=== PATIENT | female | born 1965 | race Caucasian/White ===

== ENCOUNTER 2022-01-29 11:08 | Inpatient (IN) | payer MEDICAID ==
[~2022-01-29] VITALS: Ht 162.6 cm; Wt 83.8 kg
[~2022-01-29 11:08] MED LIST: ALBU18HF2 INH; FLUO20CA39 PO; FLUT1DIS20 INH; FOLI1CAP8 PO; GABA300C PO; HYDR-3686 PO; HYDR-3972 PO; INSU100V40 SQ; INSU100V9 SQ; IPRA3AMP9 NEB; LANTUS SQ; METO100T14 PO; OMEG-79 PO; SEVE800T8 PO; TIOT4MIS3 PO; TRAZ-251 PO; VENL150C4 PO; VENL75TA90 PO; ZOLP10TA PO
[2022-01-29] MEDS ORDERED: LORazepam 2 mg/ml vial IV ONE (11:15)
[2022-01-29] MEDS ORDERED: metoclopramide 5 mg/ml inj IV ONE (11:25)
[2022-01-29 11:39] LABS: ABG BASE EXCESS -5.6 mmol/L (-2.0-2.0); ABG HCO3 21.9 mmol/L (22.0-26.0); ABG OXYGEN SATURATION 96.7 % (94-97); ABG PO2 (T) 92.7 mmHg (75.0-100.0); ALLEN'S TEST POSITIVE; FMetHb 0.2 % (0.0-1.5); FO2Hb 94.6 % (94-97); PATIENT TEMPERATURE 35.2; RESPIRATORY RATE 10 b/min; TOTAL HEMOGLOBIN 13.4 G/dl (12.0-16.0)
[2022-01-29 11:42] LABS: ALANINE AMINOTRANSFERASE 30 U/L (12-78); ALBUMIN 3.5 G/DL (3.4-5.0); ALBUMIN/GLOBULIN RATIO 0.7 (1.1-1.5); ALKALINE PHOSPHATASE 129 IU/L (46-116); ANION GAP 10 (8-16); ASPARTATE AMINO TRANSFERASE 27 U/L (10-37); BILIRUBIN,TOTAL 0.4 MG/DL (0.1-1.0); BLOOD UREA NITROGEN 40 MG/DL (7-18); BUN/CREATININE RATIO 6.1 (6.6-38.0); CALCIUM 8.8 MG/DL (8.5-10.1); CHLORIDE 91 MMOL/L (99-107); CREATININE 6.54 MG/DL (0.40-0.90); GLUCOSE 379 MG/DL (70-104); POTASSIUM 5.5 MMOL/L (3.5-5.1); SODIUM 129 MMOL/L (135-145); TOTAL CARBON DIOXIDE 27.7 MMOL/L (24-32); TOTAL PROTEIN 8.6 G/DL (6.4-8.2); eGFR 7 ML/MIN
[2022-01-29 11:43] LABS: BASOPHILS # (AUTO) 0.1 X10'3 (0-0.2); BASOPHILS % (AUTO) 0.9 % (0-1); EOSINOPHILS # (AUTO) 0.5 X10'3 (0-0.9); EOSINOPHILS % (AUTO) 3.4 % (0-6); HEMATOCRIT 39.8 % (35.0-45.0); HEMOGLOBIN 12.9 g/dl (12.0-16.0); LYMPHOCYTES # (AUTO) 3.6 X10'3 (1.1-4.8); LYMPHOCYTES % (AUTO) 22.6 % (21-51); MEAN CORPUSCULAR HGB CONC 32.4 g/dL (33.0-36.5); MEAN CORPUSCULAR VOLUME 98.7 FL (78-98); MEAN PLATELET VOLUME 7.2 FL (7.4-10.4); MONOCYTES # (AUTO) 0.8 X10'3 (0-0.9); MONOCYTES % (AUTO) 5.3 % (2-12); NEUTROPHILS # (AUTO) 10.7 X10'3 (1.8-7.7); NEUTROPHILS % (AUTO) 67.8 % (42-75); PLATELET COUNT 394 X10'3 (140-440); RED BLOOD COUNT 4.03 X10'6 (4.20-5.60); RED CELL DISTRIBUTION WIDTH 19.4 % (11.5-14.5); WHITE BLOOD COUNT 15.9 X10'3 (4.5-11.0)
[2022-01-29] MEDS ORDERED: nitroGLYCERIN 1gm ointment UD TP ONE (11:50)
[2022-01-29] MEDS ORDERED: furosemide 10 MG/1 ML 10ml inj IV ONE (11:50)
[2022-01-29 12:15] LABS: PLATELET ESTIMATE NORMAL
[2022-01-29 12:16] LABS: POLYCHROMASIA FEW; STOMATOCYTES 2+
[2022-01-29] MEDS ORDERED: magnesium 2GM in 50ml NS 50 ML IV PRN (12:45)
[2022-01-29] MEDS ORDERED: magnesium hydroxide 30ml (MOM) UD suspension PO PRN (12:45)
[2022-01-29] MEDS ORDERED: potassium CL 10mEq/100ml bag 100 ML IV PRN (12:45)
[2022-01-29] MEDS ORDERED: magnesium Cl slow-release 64mg tablet PO PRN (12:45)
[2022-01-29] MEDS ORDERED: heparin 1,000unit/ml 10ml vial 10 ML IV ONE (12:45)
[2022-01-29] MEDS ORDERED: acetaminophen 650mg rectal suppository RC PRN (12:45)
[2022-01-29] MEDS ORDERED: POTASSIUM BICARB 20meq eff tab 20 MEQ TABLET.EFF PO PRN ×2 (12:45)
[2022-01-29] MEDS ORDERED: morphine 2 MG/ML inj. syringe IV PRN ×2 (12:45)
[2022-01-29] MEDS ORDERED: HYDROcodone/acetaminophen 5mg/325mg tablet PO PRN (12:45)
[2022-01-29] MEDS ORDERED: albumin (human) 25% 100ml IV 100 ML IV PRN (12:45)
[2022-01-29] MEDS ORDERED: magnesium 4gm in 100ml NS 100 ML IV PRN (12:45)
[2022-01-29] MEDS ORDERED: bisacodyl 10mg suppository rectal RC PRN (12:45)
[2022-01-29] MEDS ORDERED: mag hydrox/Alum hydrox/simeth 30ml oral suspension PO PRN (12:45)
[2022-01-29] MEDS ORDERED: heparin 1,000 units/ml 10ml inj IV ONE (12:45)
[2022-01-29] MEDS ORDERED: acetaminophen 325mg tablet PO PRN ×2 (12:45)
[2022-01-29] MEDS ORDERED: diphenhydrAMINE 25mg capsule PO PRN (12:45)
[2022-01-29] MEDS ORDERED: ondansetron/PF 4mg/2ml inj IV PRN (12:45)
[2022-01-29] MEDS ORDERED: heparin 1,000 units/ml 10ml inj HE ONE ×2 (12:50)
[2022-01-29 13:35] LABS: HEMOGLOBIN A1C 7.2 % (4.5-6.2)
[2022-01-29] MEDS: ipratropium/albuterol 3ml nebule NEB SCH ×3 (16:13→23:17)
[2022-01-29] MEDS ORDERED: INSU100V9 SQ ×2 (16:39)
[2022-01-29] MEDS ORDERED: METO100T14 PO (16:39)
[2022-01-29] MEDS ORDERED: IPRA3AMP31 NEB (16:39)
[2022-01-29] MEDS ORDERED: HYDR-3686 PO (16:39)
[2022-01-29] MEDS ORDERED: TRAZ-251 PO (16:39)
[2022-01-29] MEDS ORDERED: TRIA15CR61 TOP (16:39)
[2022-01-29] MEDS ORDERED: PRED5DRO3 EACHEYE (16:39)
[2022-01-29] MEDS ORDERED: VENL75CA61 PO (16:39)
[2022-01-29] MEDS ORDERED: HYDR-3972 PO (16:39)
[2022-01-29] MEDS ORDERED: FURO40TA4 PO (16:39)
[2022-01-29] MEDS ORDERED: SODI10PO PO (16:39)
[2022-01-29] MEDS ORDERED: ZOLP10TA PO (16:39)
[2022-01-29] MEDS ORDERED: TIOT4MIS3 (16:39)
[2022-01-29] MEDS ORDERED: FLUO-10 PO (16:39)
[2022-01-29] MEDS ORDERED: INSU100V40 SQ (16:39)
[2022-01-29] MEDS ORDERED: GABA300C PO ×2 (16:39)
[2022-01-29] MEDS ORDERED: DEXTROSE 15 GM of carb/4 tabs (each vial/BOTTLE has 4 tablets) PO PRN ×2 (17:15)
[2022-01-29] MEDS ORDERED: methylPREDNISolone sod succ 125mg/2ml vial IV ONE (17:15)
[2022-01-29] MEDS ORDERED: azithromycin 250mg tablet PO ONE (17:15)
[2022-01-29] MEDS ORDERED: dextrose 50%-water 50ml dispensing syringe IV PRN ×2 (17:15)
[2022-01-29] MEDS ORDERED: MESSAGE TO PHARMACY PO ONE (17:15)
[2022-01-29] MEDS ORDERED: glucagon, human recombinant 1mg kit SUBCUT PRN (17:15)
--- NOTE | 2022-01-29 17:20 | NUR ---
Report given to ALBINA Blanco, pt to go to room 3014 B
[2022-01-29] MEDS ORDERED: cefTRIAXone 1g/NS 100ml IVPB 100 ML IV SCH (17:30)
[2022-01-29 19:00] VITALS: BP 145/74
[2022-01-29] MEDS ORDERED: LIDOcaine 1% (10mg/ml) 2ml vial SQ ONE (19:40)
[2022-01-29 20:00] VITALS: BP 129/67
[2022-01-29] MEDS: heparin, porcine 5000 units/ml vial SQ SCH (20:00)
[2022-01-29] MEDS: K and/or MAG REPLACEMENT MC SCH (20:00)
[2022-01-29] MEDS: insulin glargine (Lantus) pen - multi-dose SQ SCH (21:00)
[2022-01-29 22:00] VITALS: BP 155/72
[2022-01-29] MEDS ORDERED: hydrOXYzine 25 MG tablet PO PRN (22:30)
[2022-01-29] MEDS: HYDROcodone/acetaminophen 10/325mg tab PO PRN (22:40)
[2022-01-29] MEDS: docusate sod 100mg capsule PO SCH (22:41)
[2022-01-29] MEDS: furosemide 10 MG/1 ML 10ml inj IV SCH (22:43)
[2022-01-30] MEDS: methylPREDNISolone sod succ 125mg/2ml vial IV SCH ×3 (00:25→16:18)
[2022-01-30] MEDS ORDERED: cefTRIAXone 1g/NS 100ml IVPB 100 ML IV SCH (00:35)
[2022-01-30] MEDS: traZODone 50mg tablet PO SCH ×2 (01:23→21:13)
[2022-01-30] MEDS: HYDROcodone/acetaminophen 10/325mg tab PO PRN ×3 (01:41→13:55)
[2022-01-30 02:00] VITALS: BP 142/67
[2022-01-30] MEDS: ipratropium/albuterol 3ml nebule NEB SCH ×6 (02:34→23:07)
[2022-01-30 06:00] VITALS: BP 114/59
--- NOTE | 2022-01-30 06:31 | NUR ---
Problems reprioritized. Patient report given, ALBINA Hatch, questions answered & plan of care reviewed with .
[2022-01-30] MEDS: FLUoxetine 20mg capsule PO SCH (07:26)
[2022-01-30] MEDS: docusate sod 100mg capsule PO SCH ×2 (07:27→21:14)
[2022-01-30] MEDS: metoprolol tartrate 50mg tablet PO SCH (07:29)
[2022-01-30 07:30] LABS: BASOPHILS % (AUTO) 0.2 % (0-1); EOSINOPHILS % (AUTO) 0.1 % (0-6); HEMATOCRIT 33.3 % (35.0-45.0); HEMOGLOBIN 11.2 g/dl (12.0-16.0); LYMPHOCYTES # (AUTO) 0.9 X10'3 (1.1-4.8); LYMPHOCYTES % (AUTO) 11.3 % (21-51); MEAN CORPUSCULAR HEMOGLOBIN 33.1 PG (27.0-31.0); MEAN CORPUSCULAR HGB CONC 33.5 g/dL (33.0-36.5); MEAN CORPUSCULAR VOLUME 98.7 FL (78-98); MEAN PLATELET VOLUME 7.4 FL (7.4-10.4); MONOCYTES # (AUTO) 0.1 X10'3 (0-0.9); MONOCYTES % (AUTO) 0.7 % (2-12); NEUTROPHILS # (AUTO) 6.7 X10'3 (1.8-7.7); NEUTROPHILS % (AUTO) 87.7 % (42-75); PLATELET COUNT 255 X10'3 (140-440); RED BLOOD COUNT 3.38 X10'6 (4.20-5.60); RED CELL DISTRIBUTION WIDTH 19.1 % (11.5-14.5); WHITE BLOOD COUNT 7.7 X10'3 (4.5-11.0)
[2022-01-30] MEDS: azithromycin 250mg tablet PO SCH (07:30)
[2022-01-30] MEDS: venlafaxine XR 75mg capsule (Q24H) PO SCH (07:31)
[2022-01-30] MEDS: heparin, porcine 5000 units/ml vial SQ SCH ×2 (07:32→21:13)
[2022-01-30] MEDS: furosemide 10 MG/1 ML 10ml inj IV SCH ×2 (07:33→21:13)
[2022-01-30] MEDS: triamcinolone acetonide 0.5% cream 15gm TP SCH ×2 (07:36→21:14)
[2022-01-30] MEDS: prednisoLONE acetate 1% ophth susp 5ml EACHEYE SCH ×2 (07:36→21:12)
[2022-01-30] MEDS ORDERED: (Tiotropium Br/Olodaterol HCl (Stiolto Respimat Inhal Spray) 2 PUFFS) IH SCH (08:00)
[2022-01-30] MEDS ORDERED: SODIUM ZIRCONIUM CYCLOSILICATE 10 GM POWD.PACK PO SCH (08:00)
[2022-01-30] MEDS ORDERED: gabapentin 300mg capsule PO SCH ×2 (08:00→21:00)
[2022-01-30] MEDS: K and/or MAG REPLACEMENT MC SCH ×2 (08:00→20:00)
[2022-01-30] MEDS: insulin Lispro (HumaLOG) vial - multi-dose SQ SCH ×5 (08:11→22:07)
[2022-01-30 08:22] LABS: ALANINE AMINOTRANSFERASE 24 U/L (12-78); ALBUMIN 2.9 G/DL (3.4-5.0); ALBUMIN/GLOBULIN RATIO 0.7 (1.1-1.5); ALKALINE PHOSPHATASE 92 IU/L (46-116); ANION GAP 16 (8-16); ASPARTATE AMINO TRANSFERASE 18 U/L (10-37); BILIRUBIN,TOTAL 0.4 MG/DL (0.1-1.0); BLOOD UREA NITROGEN 59 MG/DL (7-18); BUN/CREATININE RATIO 7.6 (6.6-38.0); CALCIUM 8.4 MG/DL (8.5-10.1); CHLORIDE 92 MMOL/L (99-107); CHOL/HDL RATIO 5.2 (0.00-4.99); CHOLESTEROL 239 MG/DL (0-200); CREATININE 7.81 MG/DL (0.40-0.90); GLUCOSE 295 MG/DL (70-104); HDL CHOLESTEROL 46 MG/DL (35-60); LDL CHOLESTEROL 136 MG/DL (50-100); MAGNESIUM 2.7 MG/DL (1.5-2.4); PHOSPHORUS 7.4 MG/DL (2.3-4.5); POTASSIUM 5.3 MMOL/L (3.5-5.1); SODIUM 129 MMOL/L (135-145); TOTAL CARBON DIOXIDE 20.6 MMOL/L (24-32); TOTAL PROTEIN 7.3 G/DL (6.4-8.2); TRIGLYCERIDES 219 MG/DL (20-135); eGFR 5 ML/MIN
[2022-01-30] MEDS ORDERED: LIDOcaine 1% (10mg/ml) 2ml vial SQ ONE (10:20)
[2022-01-30] MEDS ORDERED: heparin 1,000 units/ml 10ml inj IV ONE (10:20)
--- NOTE | 2022-01-30 10:23 | NUR ---
reviewed [facility] nursing teacher physical assessment charting, witnessed medication administration
--- NOTE | 2022-01-30 10:51 | NUR ---
Diabetes consult: Noted pt w/ hx of DM A1c 7.2 Written DM ed w/ RD contact info placed in pt chart Addendum: 01/30/22 at [address] Amended: Links added.
[2022-01-30 11:00] VITALS: BP 131/53
[2022-01-30] MEDS: sevelamer carbonate 800mg tablet PO SCH ×2 (13:08→17:30)
[2022-01-30 15:00] VITALS: BP 118/62
[2022-01-30] MEDS: atorvastatin 20mg tablet PO SCH (16:18)
--- NOTE | 2022-01-30 17:32 | NUR ---
reviewed physical assessment charting from [facility] nursing resident
[2022-01-30 18:00] VITALS: BP 129/59
[2022-01-30] MEDS ORDERED: zolpidem 5mg tablet PO SCH (21:00)
[2022-01-30 22:00] VITALS: BP 144/66
[2022-01-30] MEDS: insulin glargine (Lantus) pen - multi-dose SQ SCH (22:06)
--- NOTE | 2022-01-30 22:44 | NUR ---
critical BS. Provider notified about Pt Sarina Romano rm [id number]. HS BS 468. 9U humalog given. RN Will [id number]. ty
[2022-01-31] MEDS: methylPREDNISolone sod succ 125mg/2ml vial IV SCH ×2 (01:10→07:31)
[2022-01-31 02:00] VITALS: BP 139/70
[2022-01-31] MEDS: HYDROcodone/acetaminophen 10/325mg tab PO PRN ×2 (02:19→10:09)
[2022-01-31] MEDS: ipratropium/albuterol 3ml nebule NEB SCH ×4 (02:48→14:41)
[2022-01-31 06:00] VITALS: BP 170/87
[2022-01-31 07:23] LABS: ALANINE AMINOTRANSFERASE 24 U/L (12-78); ALBUMIN 3.1 G/DL (3.4-5.0); ALBUMIN/GLOBULIN RATIO 0.7 (1.1-1.5); ALKALINE PHOSPHATASE 107 IU/L (46-116); ANION GAP 9 (8-16); ASPARTATE AMINO TRANSFERASE 15 U/L (10-37); BILIRUBIN,TOTAL 0.3 MG/DL (0.1-1.0); BLOOD UREA NITROGEN 59 MG/DL (7-18); BUN/CREATININE RATIO 11.5 (6.6-38.0); CALCIUM 8.4 MG/DL (8.5-10.1); CHLORIDE 95 MMOL/L (99-107); CREATININE 5.14 MG/DL (0.40-0.90); GLUCOSE 265 MG/DL (70-104); MAGNESIUM 2.4 MG/DL (1.5-2.4); PHOSPHORUS 5.4 MG/DL (2.3-4.5); SODIUM 129 MMOL/L (135-145); TOTAL CARBON DIOXIDE 25.4 MMOL/L (24-32); TOTAL PROTEIN 7.4 G/DL (6.4-8.2); eGFR 9 ML/MIN
[2022-01-31 07:26] VITALS: BP_SYST 170
[2022-01-31] MEDS: metoprolol tartrate 50mg tablet PO SCH (07:26)
[2022-01-31] MEDS: azithromycin 250mg tablet PO SCH (07:26)
[2022-01-31] MEDS: FLUoxetine 20mg capsule PO SCH (07:27)
[2022-01-31] MEDS: venlafaxine XR 75mg capsule (Q24H) PO SCH (07:28)
[2022-01-31] MEDS: docusate sod 100mg capsule PO SCH (07:28)
[2022-01-31] MEDS: atorvastatin 20mg tablet PO SCH (07:29)
[2022-01-31] MEDS: sevelamer carbonate 800mg tablet PO SCH ×2 (07:30→13:05)
[2022-01-31 07:31] LABS: POTASSIUM 7.1 MMOL/L (3.5-5.1)
[2022-01-31] MEDS: furosemide 10 MG/1 ML 10ml inj IV SCH (07:31)
[2022-01-31] MEDS: heparin, porcine 5000 units/ml vial SQ SCH (07:32)
--- NOTE | 2022-01-31 07:34 | NUR ---
Critical K of 7.1 reported to RN at this time. Lab to be redrawn.
[2022-01-31] MEDS: prednisoLONE acetate 1% ophth susp 5ml EACHEYE SCH (07:37)
[2022-01-31] MEDS: triamcinolone acetonide 0.5% cream 15gm TP SCH (07:39)
[2022-01-31] MEDS ORDERED: gabapentin 100mg capsule PO SCH (08:00)
[2022-01-31] MEDS: K and/or MAG REPLACEMENT MC SCH (08:00)
[2022-01-31 08:12] LABS: BASOPHILS % (AUTO) 0.2 % (0-1); EOSINOPHILS % (AUTO) 0 % (0-6); HEMATOCRIT 34.1 % (35.0-45.0); HEMOGLOBIN 10.9 g/dl (12.0-16.0); LYMPHOCYTES % (AUTO) 6.8 % (21-51); MEAN CORPUSCULAR HEMOGLOBIN 31.6 PG (27.0-31.0); MEAN CORPUSCULAR VOLUME 98.6 FL (78-98); MEAN PLATELET VOLUME 7.2 FL (7.4-10.4); MONOCYTES # (AUTO) 0.2 X10'3 (0-0.9); MONOCYTES % (AUTO) 1.5 % (2-12); NEUTROPHILS # (AUTO) 13.3 X10'3 (1.8-7.7); NEUTROPHILS % (AUTO) 91.5 % (42-75); PLATELET COUNT 270 X10'3 (140-440); RED BLOOD COUNT 3.45 X10'6 (4.20-5.60); RED CELL DISTRIBUTION WIDTH 19.7 % (11.5-14.5); WHITE BLOOD COUNT 14.6 X10'3 (4.5-11.0)
[2022-01-31] MEDS: insulin Lispro (HumaLOG) vial - multi-dose SQ SCH (08:58)
[2022-01-31] MEDS ORDERED: LEVO500T90 PO (09:48)
--- NOTE | 2022-01-31 11:21 | NUR ---
Notified MD Mustafa of elevated blood sugars at this time.
== END 2022-01-31 13:30 | disposition home or self-care (01) | DRG 133 ==
LOC: ER 11:09 → ED HOLD 12:53 → PCU 3S 17:35
PROVIDERS: ADMIT Family Medicine; ATTEND Family Medicine
PROC: 5A1D70Z Performance of Urinary Filtration, Intermittent, Less than 6 Hours Per Day (ICD-10-PCS; principal; 2022-01-29)
PROC: 5A09357 Assistance with Respiratory Ventilation, Less than 24 Consecutive Hours, Continuous Positive Airway Pressure (ICD-10-PCS; 2022-01-29)
PROC: 5A1D70Z Performance of Urinary Filtration, Intermittent, Less than 6 Hours Per Day (ICD-10-PCS; 2022-01-30)
DX: J96.21 Acute and chronic respiratory failure with hypoxia (principal); I13.2 Hypertensive heart and chronic kidney disease with heart failure and with stage 5 chronic kidney disease, or end stage renal disease; I27.20 Pulmonary hypertension, unspecified; J18.9 Pneumonia, unspecified organism; N18.6 End stage renal disease; E87.1 Hypo-osmolality and hyponatremia; I50.813 Acute on chronic right heart failure; E11.22 Type 2 diabetes mellitus with diabetic chronic kidney disease; J44.0 Chronic obstructive pulmonary disease with (acute) lower respiratory infection; E11.42 Type 2 diabetes mellitus with diabetic polyneuropathy; Z20.822 Contact with and (suspected) exposure to COVID-19; E78.00 Pure hypercholesterolemia, unspecified; E87.5 Hyperkalemia; F17.210 Nicotine dependence, cigarettes, uncomplicated; F32.A Depression, unspecified; F41.9 Anxiety disorder, unspecified; G89.4 Chronic pain syndrome; J44.1 Chronic obstructive pulmonary disease with (acute) exacerbation; J96.22 Acute and chronic respiratory failure with hypercapnia; Z79.4 Long term (current) use of insulin; Z79.899 Other long term (current) drug therapy; Z91.19 Patient's noncompliance with other medical treatment and regimen; Z99.2 Dependence on renal dialysis; Z71.6 Tobacco abuse counseling
CPT/HCPCS: 36415; 36600; 71045; 80053; 80061; 82803; 82948; 83036; 83605; 83735; 83880; 84100; 84132; 84145; 84484; 85008; 85018; 85025; 85610; 87040; 87081; 87635; 90935; 92508; 92616; 93005; 93306; 94640; 94660; 94760; 99291; G0257; G0378; J0696; J1644; J1815; J1940; J2765; J2930; J3490; Q0177

== ENCOUNTER 2022-05-24 12:00 | Inpatient (IN) | payer MEDICAID ==
[~2022-05-24] VITALS: Ht 167.6 cm; Wt 84.0 kg
[~2022-05-24 12:00] MED LIST changes: +FLUO-10 PO; +FURO40TA4 PO; +IPRA3AMP31 NEB; +PRED5DRO3 EACHEYE; +SODI10PO PO; +TIOT4MIS3; +TRIA15CR61 TOP; +VENL75CA61 PO
[2022-05-24] MEDS ORDERED: normal saline 1000ml 1,000 ML IV PRN (12:20)
[2022-05-24 12:35] VITALS: BP 141/66
[2022-05-24 13:00] LABS: BASOPHILS # (AUTO) 0.1 X10'3 (0-0.2); BASOPHILS % (AUTO) 0.6 % (0-1); EOSINOPHILS # (AUTO) 0.2 X10'3 (0-0.9); EOSINOPHILS % (AUTO) 2.3 % (0-6); HEMATOCRIT 32.6 % (35.0-45.0); LYMPHOCYTES # (AUTO) 1.8 X10'3 (1.1-4.8); LYMPHOCYTES % (AUTO) 16.4 % (21-51); MEAN CORPUSCULAR HEMOGLOBIN 32.9 PG (27.0-31.0); MEAN CORPUSCULAR HGB CONC 33.8 g/dL (33.0-36.5); MEAN CORPUSCULAR VOLUME 97.2 FL (78-98); MEAN PLATELET VOLUME 7.4 FL (7.4-10.4); MONOCYTES # (AUTO) 0.8 X10'3 (0-0.9); NEUTROPHILS # (AUTO) 7.9 X10'3 (1.8-7.7); NEUTROPHILS % (AUTO) 73.7 % (42-75); PLATELET COUNT 207 X10'3 (140-440); RED BLOOD COUNT 3.35 X10'6 (4.20-5.60); RED CELL DISTRIBUTION WIDTH 16.7 % (11.5-14.5); WHITE BLOOD COUNT 10.8 X10'3 (4.5-11.0)
[2022-05-24] MEDS ORDERED: AMLO-708 PO (13:16)
[2022-05-24] MEDS ORDERED: [UNRECOGNIZED DRUG - OTHER] (13:20)
[2022-05-24 13:38] LABS: ALBUMIN 3.1 G/DL (3.4-5.0); ANION GAP 21 (8-16); BLOOD UREA NITROGEN 76 MG/DL (7-18); BUN/CREATININE RATIO 4.8 (6.6-38.0); CALCIUM 7.9 MG/DL (8.5-10.1); CHLORIDE 96 MMOL/L (99-107); CREATININE 15.85 MG/DL (0.40-0.90); GLUCOSE 99 MG/DL (70-104); SODIUM 135 MMOL/L (135-145); TOTAL CARBON DIOXIDE 17.6 MMOL/L (24-32); eGFR 2 ML/MIN
--- NOTE | 2022-05-24 13:45 | NUR ---
IR notified of patient's critical potassium 7.1. Dr. German aware.
[2022-05-24 13:46] LABS: POTASSIUM 7.1 MMOL/L (3.5-5.1)
--- NOTE | 2022-05-24 14:30 | NUR ---
Dr. Pulido in to see patient for admission
[2022-05-24] MEDS ORDERED: heparin 1,000unit/ml 10ml vial 10 ML ONE (14:47)
[2022-05-24] MEDS ORDERED: LIDOcaine 1% W/epiNEPHrine 1:100,000 20ml vial ONE (14:47)
[2022-05-24] MEDS ORDERED: midazolam 1 mg/ML 2ml injection ONE (14:48)
[2022-05-24] MEDS ORDERED: fentaNYL/PF 50MCG/1 ML 2ML syringe ONE (14:48)
[2022-05-24] MEDS ORDERED: POTASSIUM BICARB 20meq eff tab 20 MEQ TABLET.EFF PO PRN ×2 (15:30)
[2022-05-24] MEDS ORDERED: potassium CL 10mEq/100ml bag 100 ML IV PRN (15:30)
[2022-05-24] MEDS ORDERED: HYDROcodone/acetaminophen 10/325mg tab PO PRN (15:30)
[2022-05-24] MEDS ORDERED: HYDROmorphone/PF 0.2 MG/ML SYRINGE IV PRN (15:30)
[2022-05-24] MEDS ORDERED: HYDROcodone/acetaminophen 5mg/325mg tablet PO PRN (15:30)
[2022-05-24] MEDS ORDERED: HYDROmorphone inj. 0.5 MG/0.5 ML DISP.SYRIN IV PRN (15:30)
[2022-05-24] MEDS ORDERED: magnesium 4gm in 100ml NS 100 ML IV PRN (15:30)
[2022-05-24] MEDS ORDERED: ondansetron/PF 4mg/2ml inj IV PRN (15:30)
[2022-05-24] MEDS ORDERED: magnesium 2GM in 50ml NS 50 ML IV PRN (15:30)
[2022-05-24] MEDS ORDERED: acetaminophen 325mg tablet PO PRN ×2 (15:30)
[2022-05-24] MEDS ORDERED: mag hydrox/Alum hydrox/simeth 30ml oral suspension PO PRN (15:30)
[2022-05-24] MEDS ORDERED: magnesium Cl slow-release 64mg tablet PO PRN (15:30)
[2022-05-24] MEDS ORDERED: glucagon, human recombinant 1mg kit SUBCUT PRN (15:35)
[2022-05-24] MEDS ORDERED: normal saline 1000ml 250 ML IV PRN (15:35)
[2022-05-24] MEDS ORDERED: heparin 1,000 units/ml 10ml inj HE ONE ×2 (15:35)
[2022-05-24] MEDS ORDERED: dextrose 50%-water 50ml dispensing syringe IV PRN ×2 (15:35)
[2022-05-24] MEDS ORDERED: insulin Lispro (HumaLOG) vial - multi-dose SQ SCH (15:35)
[2022-05-24] MEDS ORDERED: heparin 1,000unit/ml 10ml vial 10 ML IV ONE (15:35)
[2022-05-24] MEDS ORDERED: DEXTROSE 15 GM of carb/4 tabs (each vial/BOTTLE has 4 tablets) PO PRN ×2 (15:35)
[2022-05-24] MEDS ORDERED: MESSAGE TO PHARMACY PO ONE (15:35)
[2022-05-24] MEDS ORDERED: EPOETIN ALFA-EPBX 20,000 UNIT/ML 1 ML MDV IV ONE (15:35)
[2022-05-24 15:50] VITALS: BP 154/79
[2022-05-24 16:27] LABS: PHOSPHORUS 16.4 MG/DL (2.3-4.5)
--- NOTE | 2022-05-24 17:05 | NUR ---
Patient taken up to PCU room 3019. All belongings with patient on transfer. Payton MONTEMAYOR at bedside.
[2022-05-24 18:00] VITALS: BP 148/62
[2022-05-24] MEDS: K and/or MAG REPLACEMENT MC SCH (20:00)
[2022-05-24] MEDS ORDERED: insulin glargine (Lantus) pen - multi-dose SQ SCH (21:00)
[2022-05-24 22:00] VITALS: BP 138/71
[2022-05-25 02:00] VITALS: BP 125/69
[2022-05-25 07:01] LABS: ALANINE AMINOTRANSFERASE 14 U/L (12-78); ALBUMIN/GLOBULIN RATIO 0.7 (1.1-1.5); ALKALINE PHOSPHATASE 94 IU/L (46-116); ANION GAP 15 (8-16); ASPARTATE AMINO TRANSFERASE 19 U/L (10-37); BILIRUBIN,TOTAL 0.3 MG/DL (0.1-1.0); BLOOD UREA NITROGEN 35 MG/DL (7-18); BUN/CREATININE RATIO 3.8 (6.6-38.0); CALCIUM 8.2 MG/DL (8.5-10.1); CHLORIDE 98 MMOL/L (99-107); GLUCOSE 223 MG/DL (70-104); MAGNESIUM 2.5 MG/DL (1.5-2.4); PHOSPHORUS 8.7 MG/DL (2.3-4.5); POTASSIUM 4.5 MMOL/L (3.5-5.1); SODIUM 139 MMOL/L (135-145); TOTAL CARBON DIOXIDE 26.3 MMOL/L (24-32); TOTAL PROTEIN 7.3 G/DL (6.4-8.2); eGFR 4 ML/MIN
[2022-05-25] MEDS: K and/or MAG REPLACEMENT MC SCH (08:00)
[2022-05-25] MEDS ORDERED: LIDOcaine 1%/PF 5ML 10 MG/ML VIAL ONE (14:37)
[2022-05-25] MEDS ORDERED: heparin 1,000unit/ml 10ml vial 10 ML ONE (14:38)
[2022-05-25] MEDS ORDERED: fentaNYL/PF 50MCG/1 ML 2ML syringe ONE (14:38)
[2022-05-25] MEDS ORDERED: midazolam 1 mg/ML 2ml injection ONE (14:38)
--- NOTE | 2022-05-25 18:01 | NUR ---
Patient given discharge papers and instructions discussed with patient. Questions answered. IVL removed.
[2022-05-26 13:28] LABS: HBSAG SCREEN Negative (Negative)
== END 2022-05-25 17:18 | disposition home or self-care (01) | DRG 206 ==
LOC: SSTAY O 12:00 → PCU 3S 15:31
PROVIDERS: ADMIT Family Medicine; ATTEND Family Medicine
PROC: 02HV33Z Insertion of Infusion Device into Superior Vena Cava, Percutaneous Approach (ICD-10-PCS; principal; 2022-05-24)
PROC: B548ZZA Ultrasonography of Superior Vena Cava, Guidance (ICD-10-PCS; 2022-05-24)
PROC: B5181ZA Fluoroscopy of Superior Vena Cava using Low Osmolar Contrast, Guidance (ICD-10-PCS; 2022-05-24)
PROC: 5A1D70Z Performance of Urinary Filtration, Intermittent, Less than 6 Hours Per Day (ICD-10-PCS; 2022-05-24)
DX: T82.868A Thrombosis due to vascular prosthetic devices, implants and grafts, initial encounter (principal); I12.0 Hypertensive chronic kidney disease with stage 5 chronic kidney disease or end stage renal disease; E11.22 Type 2 diabetes mellitus with diabetic chronic kidney disease; E78.5 Hyperlipidemia, unspecified; F41.9 Anxiety disorder, unspecified; Z20.822 Contact with and (suspected) exposure to COVID-19; E11.42 Type 2 diabetes mellitus with diabetic polyneuropathy; Y83.8 Other surgical procedures as the cause of abnormal reaction of the patient, or of later complication, without mention of misadventure at the time of the procedure; E87.5 Hyperkalemia; F17.200 Nicotine dependence, unspecified, uncomplicated; F32.A Depression, unspecified; G89.4 Chronic pain syndrome; N18.6 End stage renal disease; Z99.2 Dependence on renal dialysis; Z79.899 Other long term (current) drug therapy; Y92.89 Other specified places as the place of occurrence of the external cause
CPT/HCPCS: 36415; 36556; 36558; 76937; 77001; 80048; 80053; 82948; 83735; 84100; 85025; 85610; 87340; 87811; A4620; A6449; A9270; C1769; C1894; G0257; G0378; J1644; J1815; J2250; J3010; J3490; J7030

== ENCOUNTER 2025-03-02 19:54 | Emergency (ER) | payer BC, MEDICAID ==
[~2025-03-02] VITALS: Ht 165.1 cm; Wt 76.5 kg
[~2025-03-02 19:54] MED LIST changes: +ALBU17AE26; +AMLO-708 PO; +FLUO-1 PO; -FLUO20CA39 PO; -FLUT1DIS20 INH; +FURO80TA3 PO; +GABA300C; -HYDR-3686 PO; -INSU100V40 SQ; -IPRA3AMP31 NEB; -LANTUS SQ; -METO100T14 PO; +OMEG1CAP61 PO; -PRED5DRO3 EACHEYE; +SEVE800T28; +SODI10PO; -TIOT4MIS3; -TIOT4MIS3 PO; -TRAZ-251 PO; -TRIA15CR61 TOP; -VENL150C4 PO; +VENL150C58 PO; -VENL75TA90 PO; +VITA-268 PO; -ZOLP10TA PO; +[UNRECOGNIZED DRUG - OTHER]
[2025-03-02 20:00] VITALS: PULSE 86; RESP 14; TEMP 97.2; O2SAT 98
== END 2025-03-03 00:28 | disposition left against medical advice (07) ==
LOC: ER 19:54
DX: H92.20 Otorrhagia, unspecified ear (principal); Z88.8 Allergy status to other drugs, medicaments and biological substances; Z53.21 Procedure and treatment not carried out due to patient leaving prior to being seen by health care provider
CPT/HCPCS: A6258